=== PATIENT | male | born 1975 | race Caucasian/White ===

== ENCOUNTER 2016-12-10 16:24 | Inpatient (IN) | payer OTHER ==
[~2016-12-10] VITALS: Ht 172.7 cm; Wt 90.0 kg
[2016-12-10 16:26] VITALS: BP 144/100; PULSE 70; RESP 23; TEMP 98.6; O2SAT 99
[2016-12-10] MEDS ORDERED: NITROGLYCERIN 0.4 MG SL 25 TABS/BTL SL STA (16:39)
[2016-12-10] MEDS ORDERED: SODIUM CHLOR 0.9% 1000 ML INJ 1,000 ML IV ONE (16:39)
[2016-12-10] MEDS ORDERED: ASPIRIN 81 MG CHEW TAB PO STA (16:39)
[2016-12-10 16:41] VITALS: BP 146/95; PULSE 64; RESP 16; TEMP 98.6
[2016-12-10] MEDS ORDERED: NITROGLYCERIN-DEXTROSE INJ 250 ML IV SCH (16:45)
[2016-12-10] MEDS ORDERED: HEPARIN-NS/PF INJ 500 ML ONE (16:49)
--- NOTE | 2016-12-10 16:53 | PD ---
HPI Chief Complaint: Chest Pain Time Seen by Provider: 16:39 Travel History International Travel<30 days: No Contact w/Intl Traveler<30days: No Traveled to known affect area: No History of Present Illness HPI 42-year-old gentleman who presents today with 45 minutes of chest pain with radiation to his right jaw. Patient reports substernal pressure 10 out of 10 with radiation to right jaw. Patient also reports associated nausea and diaphoresis. Patient has no risk factors other than possible grandfather who had heart disease. [facility] Social History Alcohol Use: No Tobacco Use: Yes Substance Use: No Allergies-Medications (Allergen,Severity, Reaction): Coded Allergies: Amoxicillin (Verified Allergy, Unknown, 12/10/16) Review of Systems General / Constitutional: No: Fever HENT: No: Headaches, Lightheadedness Cardiovascular: Positive: Chest Pain or Discomfort, No: Palpitations, Irregular Rhythm Respiratory: Positive: Shortness of Breath, No: Cough Gastrointestinal: Positive: Nausea, No: Vomiting, Abdominal Pain Musculoskeletal: Positive: Pain, No: Myalgias, Weakness (pain rating to the right jaw) Neurologic: No: Weakness, Dizziness, Ataxia, Headache Physical Exam Narrative GENERAL: Well developed well-nourished male in no acute respiration distress SKIN: Focused skin assessment warm/dry. HEAD: Atraumatic. Normocephalic. EYES: No scleral icterus. No injection or drainage. ENT: Mucous membranes pink and moist. NECK: Trachea midline. No JVD. Supple CARDIOVASCULAR: Regular rate and rhythm. No murmur appreciated. RESPIRATORY: No accessory muscle use. Clear to auscultation. Breath sounds equal bilaterally. GASTROINTESTINAL: Abdomen soft, non-tender, nondistended. Hepatic and splenic margins not palpable. MUSCULOSKELETAL: No obvious deformities. No clubbing. No cyanosis. No edema. NEUROLOGICAL: Awake and alert. No obvious cranial nerve deficits. Motor grossly within normal limits. Normal speech. PSYCHIATRIC: Appropriate mood and affect; insight and judgment normal. Data Data Last Documented VS Vital Signs Date Time Temp Pulse Resp B/P Pulse Ox O2 Delivery O2 Flow Rate FiO2 12/10/16 16:45 100 Nasal Cannula 2 12/10/16 16:41 98.6 64 16 146/95 Orders Electrocardiogram (12/10/16 ) Troponin I (12/10/16 16:39) Ckmb (Isoenzyme) Profile (12/10/16 16:39) Complete Blood Count With Diff (12/10/16 16:39) I-Stat Profile (12/10/16 16:39) I-Stat Creatinine (12/10/16 16:39) Calcium (12/10/16 16:39) Magnesium (Mg) (12/10/16 16:39) Prothrombin Time / Inr (Pt) (12/10/16 16:39) Act Partial Throm Time (Ptt) (12/10/16 16:39) B-Type Natriuretic Peptide (12/10/16 16:39) Chest, Single Ap (12/10/16 16:39) Electrocardiogram (12/10/16 16:39) Oxygen Administration (12/10/16 16:39) Iv Access Insert/Monitor (12/10/16 16:39) Oximetry (12/10/16 16:39) Sodium Chlor 0.9% 1000 Ml Inj (Ns 1000 M (12/10/16 16:39) Sodium Chloride 0.9% Flush (Ns Flush) (12/10/16 16:45) Aspirin Chew (Aspirin Chew) (12/10/16 16:39) Nitroglycerin Sl (Nitrostat Sl) (12/10/16 16:39) Nitroglycerin-Dextrose Inj (Nitroglyceri (12/10/16 16:45) MDM Medical Decision Making Medical Screen Exam Complete: Yes Emergency Medical Condition: Yes Differential Diagnosis Unstable angina versus ST elevation WI versus pleurisy. Narrative Course 41-year-old male presents with chest pain chest pressure nausea and diaphoresis. The patient has ST elevation in the leads V1 and V2 V3 with ST depression and 2,3 and aVF. The patient has no cardiac risk factors. STEMI alert was called as soon as patient arrived. Case discussed with Dr. Dey, who is in the [facility] and awaiting patient to be transferred up. Patient will be transferred up emergently to the [facility]. Diagnosis Primary Impression: Acute ST elevation myocardial infarction Admitting Information Admitting Physician Requests: Admit Sly Briceño MD December 10, 2016 16:53
[2016-12-10] MEDS ORDERED: MIDAZOLAM HCL 5 MG/5 ML VIAL ONE (16:57)
[2016-12-10] MEDS ORDERED: HEPARIN SODIUM - IV 10,000 UNITS/10 ML VIAL ONE (17:01)
[2016-12-10 17:06] LABS: I-STAT POTASSIUM 3.8 MMOL/L (3.5-4.9); I-STAT SODIUM 142 MMOL/L (138-146)
[2016-12-10] MEDS ORDERED: BIVALIRUDIN 250 MG VIAL ONE (17:09)
[2016-12-10] MEDS ORDERED: STERILE WATER FOR INJECTION 10 ML VIAL ONE (17:09)
[2016-12-10 17:13] LABS: AUTOMATED NEUTROPHIL # 6.9 TH/MM3 (1.8-7.7); BASOPHIL % 0.2 % (0.0-2.0); EOSINOPHIL # 0.3 TH/MM3 (0-0.4); EOSINOPHIL % 2.2 % (0.0-4.0); HEMATOCRIT 50.2 % (39.0-51.0); LYMPH % 42.8 % (9.0-44.0); LYMPHOCYTE # 6.4 TH/MM3 (1.0-4.8); MEAN CELL VOLUME 88.6 FL (80.0-100.0); MEAN CORPUSCULAR HEMOGLOBIN 29.6 PG (27.0-34.0); MEAN CORPUSCULAR HGB CONC 33.5 % (32.0-36.0); MONO % 8.5 % (0.0-8.0); NEUT % 46.3 % (16.0-70.0); PLATELET COUNT 288 TH/MM3 (150-450); RED BLOOD COUNT 5.67 MIL/MM3 (4.50-5.90); RED CELL DISTRIBUTION WIDTH 12.6 % (11.6-17.2); WHITE BLOOD COUNT 14.9 TH/MM3 (4.0-11.0)
[2016-12-10 17:24] LABS: MAGNESIUM 2.3 MG/DL (1.5-2.5)
[2016-12-10 17:27] LABS: CREATINE KINASE 110 U/L (39-308)
[2016-12-10 17:38] LABS: HEMO FLAGS AUTO DIFF
[2016-12-10 17:39] LABS: CKMB 2.6 NG/ML (0.5-3.6)
[2016-12-10 17:49] LABS: APTT (PATIENT) 24.5 SEC (24.3-30.1); PROTHROMBIN TIME - PATIENT 10.8 SEC (9.8-11.6)
[2016-12-10] MEDS ORDERED: ASPIRIN 325 MG TAB ONE (17:49)
[2016-12-10] MEDS ORDERED: TICAGRELOR 90 MG TAB PO ONE (17:49)
--- NOTE | 2016-12-10 18:11 | CATHPROC ---
[employer] HIS Report Study Information Study Number Admission Scheduled Start Study Start [id number] 12/10/2016 12/10/2016 Dec 10 2016 4:56PM Referring Institution Admit Source Facility Department 1 Emergency department [facility] - Packing Machine Can Feeder Physician and Clinical Staff Initial Mu Wilkes Jennifer,RN Magnaflux OperatorMerry Han,MABEL Other Krys Knowles,MABEL/BA Other Moody Bhatia RN Other Belle Walsh RN Recorder Nakul Posey,RT(R) Barber Henriquez,RT(R) TECH2 Procedures Performed Procedure Location (Site) Vessel Name Coronary Angiograms LCA Left Coronary Coronary Angiograms RCA Right Coronary Drug Eluting Inflatio LAD Prox Left Coronary PTCA LAD Prox Left Coronary PTCA ADD ON'S Wire insertion Fem Art (right) Femoral Art Equipment Time User Experience Analyst Description Size Mfg Part Number Used/Scraped COPILOT VALVE, BLEEDBACK [id number] 17:10 [employer] Used CONTROL *[id number] PERCLOSE, PRO GLIDE CLOSER 17:46 [employer] [place] [place] 6 [id number] Used DEVICE TRANSDUCER, TRUWAVE 17:06 [employer] * [id number] Used W/[employer] WIRE, CHOICE PT EX. SUPPORT [id number] 17:20 [employer] 180CM Used 182CM *[id number]- INTRODUCER SET, 17:06 [employer] FR 5 SC-NT-U-SST Used MICROPUNCTURE, STIFFENED *[id number] *[id number] 17:06 [employer] IND[employer]RIES PACK, CCL CUSTOM * Used *[id number] 17:14 [employer] BALLOON, 2.5 X 12MM EUPHORA 12MM Used *[id number] STENT, 3.5 22 RESOLUTE [id number] 17:39 [employer] 3.5 22 Used INTEGRITY RX *[id number] 17:09 [employer]/AVE EBU 3.5 Z2 GUIDE CATHETER FR 6 Used *[id number] 17:14 [employer] 30 FRITZ INDEFLATOR Used *[id number] 17:08 [employer] SHEATH, FR6.5 PRELUDE 11CM FR 6.5 038ACT Used *[id number] 17:06 [employer] WIRE, 3MMJ .035 180CM 180CM Used *[id number] 17:06 [employer] MANIFOLD, 4 PORT * Used *[id number] 17:06 [employer] OMNIPAQUE, 350 MG, 150ML 150ML [id number] Used [id number] 17:06 [employer] BLANKET,WARM AIR CCL * Used *[id number] WIRE, RUNTHROUGH NS FLOPPY 1011 17:10 [employer] 180CM Used .014 180CM *[id number] WIRE, RUNTHROUGH NS FLOPPY 1011 17:30 [employer] 180CM Used .014 180CM *[id number] Equipment Model, Serial, Lot Number and Expiration Data Description Model Number Serial Number Lot Number Expiration Date PERCLOSE, PRO GLIDE CLOSER [id number] 05-24-2018 DEVICE STENT, 3.5 22 RESOLUTE [id number] 10-10-2018 INTEGRITY RX WIRE, CHOICE PT EX. SUPPORT [id number] 06-23-2018 182CM History: Allergies Allergy Reaction Amoxicillin History: Risk Factors Family History of Hypertension Dyslipidemia Previous SC Previous Heart Failure Premature CAD Yes No No No No Prior Valve Prior PCI Prior CABG Surgery No No No Cerebrovascular Peripheral Artery Chronic Lung On Dialysis Diabetes Disease Disease Disease No No No No No History: Stress Tests Stress or Imaging Studies Performed No History: Other Current Smoker Method Packs a Day Years Used Pack Years Yes Cigarettes 1 20 20 Labs Hgb (g/dl) Hct (%) RBC (MIL/MM3) WBC (l/cumm) Platelets (thousands) 12.00-18.00 37.00-55.00 4.80-6.20 4.80-10.80 140.00-450.00 16.8 50.2 5.6 14.9 288 Glucose (mg/dl) BUN (mg/dl) Creatinine (mg/dl) BUN:Creatinine (1:x) 60.00-110.00 8.00-20.00 0.10-9.00 10.00-20.00 107 14 0.9 15.6 Na (meq/l) K (meq/l) 138.00-146.00 3.80-5.10 142 3.8 INR (PTT:PT) 0.50-2.00 1 Troponin I (ng/ml) CPK (u/l) CPK-MB (ng/ML) 0.40-2.30 37.00-289.00 0.00-7.00 0.02 110 2.6 Medication Medication Total Dose (Bolus/Oral) Medication Total Dosage/Unit 1% XYLOCAINE 20 mL ANGIOMAX BOLUS 14 mL ASPIRIN 325 mg BRILINTA 180 mg FENTANYL 100 mcg VERSED 2 mg Medications (Bolus/Oral) Medication Time Given Dosage/Unit Administered By Reason VERSED 12/10/2016 5:04:14 PM 2 mg Belle Walsh 2 mg VERSED given in lab by Belle Walsh, MABEL in Left Antecubital via Peripheral IV. Ordered by Mu Melendez. FENTANYL 12/10/2016 5:05:30 PM 50 mcg Belle Walsh 50 mcg FENTANYL given in lab by Belle Walsh RN in Left Antecubital via Peripheral IV. Ordered by Mu Pagan. 1% XYLOCAINE 12/10/2016 5:05:42 PM 20 mL Mu Pagan 20 mL 1% XYLOCAINE given in lab by Mu Pagan in Right Groin via Subcutaneous. Ordered by Mu Melendez. ANGIOMAX BOLUS 12/10/2016 5:12:29 PM 14 mL Belle Walsh 14 mL ANGIOMAX BOLUS given in lab by Belle Walsh, MABEL in Left Antecubital via Peripheral IV. Ordere d by Mu Pagan. FENTANYL 12/10/2016 5:50:08 PM 50 mcg Adamy, Ela 50 mcg FENTANYL given in lab by Ela Rodriguez, MABEL via Peripheral IV. Ordered by Mu Pagan. BRILINTA 12/10/2016 5:55:04 PM 180 mg Adamy, Ela 180 mg BRILINTA given in lab by Ela Rodriguez, RN via Oral. Ordered by Mu Pagan. ASPIRIN 12/10/2016 5:56:27 PM 325 mg Adamy, Ela 325 mg ASPIRIN given in lab by Ela Rodriguez, RN via Oral. Ordered by Mu Paagn. Medication (Drip) Medication Time Given Dosage/Unit Concentration/Unit Diluent (ml) Solutio n ANGIOMAX DRIP 12/10/2016 5:15:27 PM 1.75 mg/kg/hr 250 mg 50 NaCl .9 1.75 mg/kg/hr ANGIOMAX DRIP given in lab by Belle Walsh, MABEL in Left Antecubital via Peripheral IV. Pump/Drip Flow = 31.5 ml/hr using NaCl .9 with a concentration of 250 mg in 50 ml. Ordered by Mu Pagan. IV Solutions 12/10/2016 4:56:48 PM 0 mL (IV) 500 NaCl .9 Patient arrived on IV Solutions in Right Antecubital via Peripheral IV. Pump/Drip Flow = 20 ml/hr usi ng NaCl .9. Initial Case Assessment Cardiovascular HR Rhythm NIBP Chest Pain 63 SR 150/100 8 Edema Present Skin color Skin None Normal Warm Dry Circulatory - Right Pulses Dorsalis Pedis Femoral 2 2 Scale (0,1,2,3,4,d) Circulatory - Left Pulses Dorsalis Pedis Femoral 2 2 Scale (0,1,2,3,4,d) Neurological State Oriented to time-place- Alert Moves all extremities person Respiration - General Respiration Rate SpO2 (%) O2 (lpm) (B/min) 18 100 0 Final Case Assessment Cardiovascular HR Rhythm NIBP Chest Pain 76 sr 118/92 0 Edema Present Skin color Skin None Normal Warm Dry Circulatory - Right Pulses Dorsalis Pedis Femoral 2 2 Scale (0,1,2,3,4,d) Circulatory - Left Pulses Dorsalis Pedis Femoral 2 2 Scale (0,1,2,3,4,d) Neurological State Oriented to time-place- Alert Moves all extremities person Respiration - General Respiration Rate SpO2 (%) O2 (lpm) (B/min) 18 100 2 Chronological Log Time Study Chronological Log 16:53:01 Patient arrived via Bed. 16:53:04 Patient Name, D.O.B, / Armband Verified By R.N. 16:56:26 Verbal Stimulation=2 Physical Stimulation=2 Airway=2 Respiration=2 TOTAL=8. (0=absent, 1=li mited, 2=present) 16:56:29 Presedation assessment performed by Packing Machine Can Feeder RN. 16:56:37 Skin Breakdown- 16:56:41 Patient Warmer Placed on the Table. 16:56:42 Disposable Defibrillator Pads Placed On Patient. 16:56:47 Aye Prominences Protected 16:56:47 A # 18 IV was noted in the Antecubital (left). Grade = 0 16:56:48 Patient arrived on IV Solutions in Right Antecubital via Peripheral IV. Pump/Drip Flow = 20 ml/hr using NaCl .9. 16:56:48 History and physical on the chart or being dictated. Assessment: Initial Case, HR=63 BPM, Rhythm=SR, QYIG=962/100 mmhg, Chest Pain=8, Edema=None, Color=Normal, Skin = Warm, Dry Right Pulses: Dez Ped=2, Femoral=2 16:56:49 Left Pulses: Dez Ped=2, Femoral=2 Neurological: State=Alert, Ox3, SUÁREZ Respiration: Resp=18 B/min, DqL0=507 %, O2=0 lpm Vitals capture started with the following parameters, Patient=Adult, Interval=5 min, Initial Pr xgcknc=158 mmHg, 16:58:20 Deflation Rate=5 mmHg 16:58:59 HR=67 bpm, GZDO=763/100 mmhg, YhT8=363.0 %, Resp=13 B/min, Pain=8, Katiana=10, Blackwell=2 17:03:13 Pressure channel 1 zeroed. 17:04:00 HR=69 bpm, MMTR=577/93 mmhg, SpO2=99.0 %, Resp=13 B/min, Blackwell=2 17:04:14 2 mg VERSED given in lab by Belle Walsh, RN in Left Antecubital via Peripheral IV. Order ed by Mu Pagan. Time Out. Correct patient, correct procedure,correct physician, ,power injector not loaded with contrast with surgical 17:04:29 team present. Time Out Concurred by MD, individual staff and LOADMASTER in procedure. Not loaded at t his time. 17:04:58 Presedation re-assessment performed by Packing Machine Can Feeder RN. 17:05:00 Case Start 17:05:02 Verbal Stimulation=2 Physical Stimulation=2 Airway=2 Respiration=2 TOTAL=8. (0=absent, 1=li mited, 2=present) 50 mcg FENTANYL given in lab by Belle Walsh, RN in Left Antecubital via Peripheral IV. Order ed by Latasha 17:05:30 Mu. 20 mL 1% XYLOCAINE given in lab by Mu Pagan in Right Groin via Subcutaneous. Ordered b y Latasha, 17:05:42 Mu. 17:06:05 Access site was Right Femoral Artery. 17:06:28 A SHEATH, FR6.5 PRELUDE 11CM FR 6.5 was advanced into the Fem Art (right) using the Modifkeith d Seldinger technique. 17:08:39 An injection in the Fem Art (right) was made through the SHEATH, FR6.5 PRELUDE 11CM FR 6.5. A JL 5.0 INFINITI CATHETER FR 5 was advanced over a wire. OMNIPAQUE, 350 MG, 150ML 150ML was us ed for 17:08:59 injections. 17:09:00 HR=87 bpm, APHK=327/111 mmhg, SpO2=95.0 %, Resp=16 B/min, Blackwell=2 17:09:15 The LCA was injected and visualized at various angles. OMNIPAQUE, 350 MG, 150ML 150ML used . 17:09:28 Catheter was removed A JR 4.0 INFINITI CATHETER FR 5 was advanced over a wire. OMNIPAQUE, 350 MG, 150ML 150ML was us ed for 17:09:30 injections. 17:10:10 Reference ECG taken 17:10:30 The RCA was injected and visualized at various angles. OMNIPAQUE, 350 MG, 150ML 150ML used . 14 mL ANGIOMAX BOLUS given in lab by Belle Walsh, MABEL in Left Antecubital via Peripheral IV. Ordered by Juliet 17:12:29 Mu Ramires. After removing the current catheter a EBU 3.5 Z2 GUIDE CATHETER FR 6 was advanced over a WIRE, 3MMJ .035 17:13:11 180CM 180CM. 17:14:03 HR=80 bpm, SZUM=225/98 mmhg, SpO2=95.0 %, Resp=18 B/min, Blackwell=2 17:14:14 OMNIPAQUE, 350 MG, 150ML 150ML and 30 FRITZ INDEFLATOR added. 17:14:46 A WIRE, RUNTHROUGH NS FLOPPY .014 180CM 180CM was inserted via Fem Art (right). 1.75 mg/kg/hr ANGIOMAX DRIP given in lab by Belle Walsh, MABEL in Left Antecubital via Peripher al IV. Pump/Drip 17:15:27 Flow = 31.5 ml/hr using NaCl .9 with a concentration of 250 mg in 50 ml. Ordered by Mu Pagan. 17:16:26 Wire removed for reshaping. 17:18:53 A WIRE, RUNTHROUGH NS FLOPPY .014 180CM 180CM was inserted via Fem Art (right). 17:19:02 HR=77 bpm, CEXO=330/108 mmhg, SpO2=99.0 %, Resp=5 B/min, Blackwell=2 17:19:55 Wire removed 17:19:58 A WIRE, CHOICE PT EX. SUPPORT 182CM 180CM was inserted via Fem Art (right). 17:24:01 HR=72 bpm, PQXM=472/111 mmhg, BqH5=100.0 %, Resp=0 B/min, Blackwell=2 17:28:38 Wire removed 17:29:06 HR=70 bpm, EOED=879/103 mmhg, SpO2=97.0 %, Resp=5 B/min, Blackwell=2 17:29:26 Catheter was removed 17:29:29 A catheter was advanced over a wire. OMNIPAQUE, 350 MG, 150ML 150ML was used for injections . XB LAD 4.0 17:32:00 A WIRE, RUNTHROUGH NS FLOPPY .014 180CM 180CM was inserted via Fem Art (right). 17:34:03 HR=74 bpm, TQJO=460/102 mmhg, SpO2=99.0 %, Resp=0 B/min, Blackwell=2 17:34:58 Interventional wire has crossed the lesion A BALLOON, 2.5 X 12MM EUPHORA 12MM was inserted over WIRE, RUNTHROUGH NS FLOPPY .014 180CM 180C M via 17:35:49 the LAD Prox. A BALLOON, 2.5 X 12MM EUPHORA 12MM over a WIRE, RUNTHROUGH NS FLOPPY .014 180CM 180CM in the LA D 17:36:08 Prox was inflated using a 30 FRITZ INDEFLATOR at 12 fritz for 10 sec. 17:38:21 Balloon Removed. 17:39:02 HR=54 bpm, XRAF=692/93 mmhg, ZdB4=352.0 %, Resp=15 B/min A STENT, 3.5 22 RESOLUTE INTEGRITY RX 3.5 22 was advanced through a catheter over a WIRE, RUBA OLSEN NS 17:39:55 FLOPPY .014 180CM 180CM. XB 4.0 A STENT, 3.5 22 RESOLUTE INTEGRITY RX 3.5 22 was deployed using a 30 FRITZ INDEFLATOR at 10 atmos pheres for 17:40:13 15 seconds in the LAD Prox. 17:42:40 Vitals capture stopped. Vitals capture started with the following parameters, Patient=Adult, Interval=5 min, Initial Pr msmnah=438 mmHg, 17:42:41 Deflation Rate=5 mmHg 17:42:46 Delivery device removed 17:43:20 HR=81 bpm, UPUC=738/92 mmhg, RpH5=300.0 %, Resp=5 B/min, Blackwell=2 17:46:08 PERCLOSE, PRO GLIDE CLOSER DEVICE FR 6 placement in the Fem Art (right) Assessment: Final Case, HR=76 BPM, Rhythm=sr, KMFM=371/92 mmhg, Chest Pain=0, Edema=None, Color =Normal, Skin = Warm, Dry Right Pulses: Dez Ped=2, Femoral=2 17:46:42 Left Pulses: Dez Ped=2, Femoral=2 Neurological: State=Alert, Ox3, SUÁREZ Respiration: Resp=18 B/min, AlP8=664 %, O2=2 lpm 17:47:36 Catheter(s) removed without difficulty 17:47:39 Case End 17:47:41 No case complications noted. 17:47:44 Cine recording checked. 17:47:47 Implantable Device card placed in patient's chart. 17:47:49 Contrast Scanned 17:48:15 HR=77 bpm, GKKJ=989/77 mmhg, NgE4=344.0 %, Resp=4 B/min, Blackwell=2 17:50:08 50 mcg FENTANYL given in lab by Ela Rodriguez, RN via Peripheral IV. Ordered by Mu Choi. 17:51:33 Sterile dressing applied to site 17:53:16 HR=64 bpm, PUWX=499/86 mmhg, HlL3=416.0 %, Resp=14 B/min, Blackwell=2 17:55:04 180 mg BRILINTA given in lab by Ela Rodriguez, RN via Oral. Ordered by Mu Pagan. 17:56:27 325 mg ASPIRIN given in lab by Ela Rodriguez, MABEL via Oral. Ordered by Mu Pagan. 18:00:07 Patient moved to [facility] End Study - Contrast Media Used In Study Contrast Total Opened (mL) Total Used (mL) Total Wasted (mL) Omnipaque 275 275 0 End Study - Maximum Contrast Load Max Contrast Load (mL) 500.0 End Study - Radiation Exposure Fluoro Time (minutes) 18.8 End Study - Patient Disposition Complications Transferred To Telemetry Bed
[2016-12-10] MEDS ORDERED: ACETAMINOPHEN 325 MG TAB PO PRN (18:15)
[2016-12-10] MEDS ORDERED: ATROPINE SULFATE 1 MG/ML VIAL IV PRN (18:15)
[2016-12-10 18:18] LABS: BANDS 2 % (0-6); BASOPHILS 3 % (0-2); EOSINOPHILS 3 % (0-4); NEUTROPHIL # MANUAL DIFF 7.5 TH/MM3 (1.8-7.7); PLATELET ESTIMATE SMEAR NORMAL (NORMAL); POLYS (SEG NEUTROPHILS) 48 % (16-70); SCAN/DIFF FINAL DIFF MANUAL; WBC DIFF SAMPLE 100
[2016-12-10 18:19] LABS: PLATELET MORPHOLOGY NORMAL (NORMAL)
--- NOTE | 2016-12-10 18:50 | MA ---
cc: SHEILA MELISSA DATE: 12/10/2016. PROCEDURES PERFORMED: 1. Left heart catheterization. 2. Selective right and left coronary angiography. 3. Right common femoral artery angiography. 4. Successful percutaneous coronary intervention drug-eluting stent to the proximal left anterior descending. INDICATIONS FOR THE PROCEDURE: S-T elevation myocardial infarction. DESCRIPTION OF THE PROCEDURE IN DETAIL: Consent signed. The patient was taken emergently to the cardiac roofing laborer. The right groin was prepped and draped in sterile fashion using 1% lidocaine for local anesthesia and a micropuncture kit. A 6-Slovenian sheath was inserted into the right common femoral artery. The right common femoral artery angiography was performed to confirm position of the sheath. Then selective right and left coronary angiography was performed with a JR-4 and a JL-4 diagnostic catheters. Angiography was taken in multiple views to identify the culprit of the STEMI in the proximal LAD territory. IV Angiomax was started for anticoagulation. An EBU 3.5 guide was used to engage the left main followed by wiring the left anterior descending with a run-through wire. the lesion was predilated with a 2.5 x 12 balloon followed by insertion and deployment of a 3.5 x 22 drug- eluting stent. The patient tolerated the procedure without complications. Estimated blood loss was less than 30 mL. Total contrast used was 275 mL. The right groin access site was closed with the Perclose device. The patient was loaded with Brilinta after the procedure and given aspirin as well. ANGIOGRAPHIC RESULTS: 1. The left main is patent with nonobstructive coronary artery disease. 2. The left anterior descending is 100% occluded. The left anterior descending is giving off a high diagonal which is patent and also there is a ramus intermedius vessel. These vessels are patent with JOSE III flow and coronary artery disease. 3. Left circumflex has minimal luminal irregularities and calcification in the midsection. It is giving off two obtuse marginal branches which are patent with JOSE III flow. 4. Right coronary artery is a dominant vessel giving off the posterior descending artery. It does have a mid 70% long lesion before the bifurcation to the RV branch. The vessel has JOSE III flow. CONCLUSIONS: 1. Successful PCI/MONET to proximal LAD in the setting of a S-T elevation myocardial infarction 2. 70% lesion in the mid right coronary artery. However this vessel was not fixed given that it was not the culprit of the STEMI and the patient was not in any hemodynamic compromise. RECOMMENDATIONS: 1. Continue dual antiplatelet agent with aspirin and Brilinta. 2. Start beta-blockers. 3. Start TRINH inhibitors as tolerated by blood pressure and heart rate. 4. The patient should have a 2-D echo before discharge to assess left ventricular systolic function. 5. He will have post Cath care in the [facility]. 6. After rest, will encourage out of bed. MD BRAEDEN Lam/DENNY /6:01 PM /6:38 PM [id number]
[2016-12-10 19:00] VITALS: BP 131/83; PULSE 85; PULSE 94; TEMP 98.5; O2SAT 96
[2016-12-10] MEDS ORDERED: SODIUM CHLOR 0.9% 1000 ML INJ 1,000 ML IV SCH (20:00)
--- NOTE | 2016-12-10 20:02 | MB ---
cc: SHEILA MELISSA DATE OF CONSULTATION: 12/10/2016. REASON FOR CONSULTATION: S-T segment elevation myocardial infarction. HISTORY OF PRESENT ILLNESS: 41-year-old male smoker who presented to the emergency department from work with an acute onset of substernal chest discomfort associated with diaphoresis and shortness of breath. EKG in the emergency department revealed anterior S-T segment elevation with reciprocal changes in the inferior leads, interventional cardiology consulted for an emergent percutaneous coronary intervention. Currently the patient complains of chest pain. He has been given aspirin, basic blood work pending. He denies fevers, chills, nausea or vomiting, diarrhea , bleeding issues, weight loss, syncope, PND, leg edema. PAST MEDICAL HISTORY: None. PAST SURGICAL HISTORY: None. HOME MEDICATIONS: None. ALLERGIES: NO KNOWN DRUG ALLERGIES. FAMILY HISTORY: Noncontributory. PHYSICAL EXAMINATION: VITAL SIGNS: Temperature 97, respiratory rate 20, blood pressure 145/80, 02 sat 100% on room air. GENERAL: He is awake, alert and oriented and complaining of chest pain. NECK: No jugular venous distention. No carotid bruits. HEART: Regular rate and rhythm. No murmurs, rubs or gallops. LUNGS: Clear to auscultation bilaterally. EXTREMITIES: No cyanosis. No edema. Pulses throughout. EKGS: S-T segment elevation in the anterior leads. He also has depressions in the inferior leads. Preliminary LABORATORY DATA: Hemoglobin 16, hematocrit 50. Sodium 140, potassium 3.8, BUN 14, creatinine 0.9. First set of troponins is 0.02. Platelet count 288,000. ASSESSMENT AND PLAN: 41-year-old male smoker who presented with S-T segment elevation myocardial infarction. The patient will be taken emergently to the cardiac labor arbitrator for emergent percutaneous coronary intervention. The risks, benefits, and alternatives of left heart catheterization / percutaneous coronary intervention including but not limited to neurovascular trauma, infection, bleeding, emergent bypass surgery, stroke, and have been explained to the patient. The patient understands the risks and he is willing to proceed. RECOMMENDATIONS: 1. Emergent PCI Further therapy to be determined. MD BRAEDEN Lam/DENNY /6:09 PM /6:48 PM DEBORAH
[2016-12-10] MEDS: METOPROLOL TARTRATE 25 MG TAB PO SCH (21:00)
[2016-12-10] MEDS ORDERED: PILL SPLITTER OTHER PRN (21:00)
[2016-12-10] MEDS ORDERED: ATORVASTATIN 10 MG TAB PO SCH (21:00)
[2016-12-10 23:00] VITALS: PULSE 89
[2016-12-11] VITALS (26 sets, daily range): BP systolic 113–133; BP diastolic 68–81; PULSE 66–94; RESP 16–20; TEMP 97.8–98.7; O2SAT 92–97
[2016-12-11 04:55] LABS: AUTOMATED NEUTROPHIL # 10.3 TH/MM3 (1.8-7.7); BASOPHIL # 0.1 TH/MM3 (0-0.2); BASOPHIL % 0.8 % (0.0-2.0); EOSINOPHIL # 0.2 TH/MM3 (0-0.4); EOSINOPHIL % 1.2 % (0.0-4.0); HEMATOCRIT 43.3 % (39.0-51.0); HEMO FLAGS DIFF FINAL; LYMPH % 23.1 % (9.0-44.0); LYMPHOCYTE # 3.6 TH/MM3 (1.0-4.8); MEAN CORPUSCULAR HEMOGLOBIN 30.3 PG (27.0-34.0); MEAN CORPUSCULAR HGB CONC 34.5 % (32.0-36.0); MONO % 8.4 % (0.0-8.0); NEUT % 66.5 % (16.0-70.0); PLATELET COUNT 224 TH/MM3 (150-450); RED BLOOD COUNT 4.92 MIL/MM3 (4.50-5.90); RED CELL DISTRIBUTION WIDTH 12.4 % (11.6-17.2); WHITE BLOOD COUNT 15.5 TH/MM3 (4.0-11.0)
[2016-12-11 05:21] LABS: BICARBONATE 25.3 MEQ/L (21.0-32.0); HDL CHOLESTEROL 29.3 MG/DL (40.0-60.0)
--- NOTE | 2016-12-11 08:07 | PD.CONS ---
[facility] By Dr. Dey Reason for Consult Medical management post STEMI Primary Care Physician Unknown Diagnoses: (1) Acute ST elevation myocardial infarction (2) Dyslipidemia (3) Leukocytosis (4) Tobacco abuse History of Present Illness The patient is a 41-year-old male who presented to the emergency department with acute onset of right-sided chest pain that radiated to his jaw. This started 30-45 minutes prior to arrival at the ER. He states that he has intermittent neck and upper chest pain related to prior cervical fusion, but this pain was significantly different and did not resolve. He took Tums without relief. He reported associated diaphoresis. He had nausea, but no vomiting. Denies dyspnea. Chest pain has resolved. Only complaint at this time is right groin pain. Review of Systems Constitutional: COMPLAINS OF: Diaphoretic episodes, DENIES: Fever, Chills, Night Sweats Eyes: DENIES: Blurred vision, Vision loss Ears, nose, mouth, throat: DENIES: Hearing loss Respiratory: DENIES: Cough, Wheezing, Sputum production, Shortness of breath Cardiovascular: COMPLAINS OF: Chest pain, DENIES: Palpitations, Dyspnea on Exertion, Lower Extremity Edema Gastrointestinal: COMPLAINS OF: Nausea, DENIES: Abdominal pain, Constipation, Diarrhea, Vomiting Genitourinary: DENIES: Urinary frequency, Urinary incontinence, Urgency, Hematuria, Dysuria, Nocturia Musculoskeletal: DENIES: Joint pain, Muscle aches Integumentary: DENIES: Pruritus, Rash Hematologic/lymphatic: DENIES: Bruising Neurologic: DENIES: Headache Past Family Social History Allergies: Coded Allergies: Amoxicillin (Verified Allergy, Unknown, 12/10/16) Past Medical History Denies Past Surgical History Left hand surgery as a child Cervical spine fusion Reported Medications None Family History Grandfather had myocardial infarction. Mother has history of atrial fibrillation. Social History Smokes one pack per day. Drinks 1-2 alcoholic beverages daily. Denies illicit drug use. Physical Exam Vital Signs Vital Signs Date Time Temp Pulse Resp B/P Pulse Ox O2 Delivery O2 Flow Rate FiO2 12/11/16 06:00 84 12/11/16 05:00 66 12/11/16 04:14 98.7 83 133/70 96 12/11/16 04:00 74 12/11/16 03:00 81 12/11/16 02:00 70 12/11/16 01:00 76 12/11/16 00:39 98.3 73 119/68 92 12/11/16 00:00 68 12/10/16 23:00 89 12/10/16 19:00 98.5 94 131/83 96 12/10/16 19:00 85 12/10/16 19:00 98.5 94 131/83 96 12/10/16 16:47 100 Room Air 2 12/10/16 16:45 100 Nasal Cannula 2 12/10/16 16:41 98.6 64 16 146/95 12/10/16 16:26 98.6 70 23 144/100 99 Physical Exam GENERAL: Well-nourished, well-developed male in no acute distress. HEENT: Normocephalic, atraumatic. Pupils equal, round and reactive. Extraocular movements intact. No scleral icterus. No injection or drainage. Oropharynx is clear. Mucous membranes are moist. CARDIOVASCULAR: Regular rate and rhythm without murmurs, gallops, or rubs. RESPIRATORY: Clear to auscultation. No wheezes, rales, or rhonchi. Breathing is non-labored. GASTROINTESTINAL: Abdomen soft, non-tender, nondistended. EXTREMITIES: No lower extremity edema. No calf tenderness. PSYCH: Alert and oriented x 3. Laboratory Laboratory Tests Test 12/10/16 12/11/16 16:47 04:29 White Blood Count 14.9 15.5 Red Blood Count 5.67 4.92 Hemoglobin 16.8 14.9 Bedside Hemoglobin 16.7 Hematocrit 50.2 43.3 Bedside Hematocrit 49.0 Mean Corpuscular Volume 88.6 88.0 Mean Corpuscular Hemoglobin 29.6 30.3 Mean Corpuscular Hemoglobin 33.5 34.5 Concent Red Cell Distribution Width 12.6 12.4 Platelet Count 288 224 Mean Platelet Volume 9.9 10.2 Neutrophils (%) (Auto) 46.3 66.5 Lymphocytes (%) (Auto) 42.8 23.1 Monocytes (%) (Auto) 8.5 8.4 Eosinophils (%) (Auto) 2.2 1.2 Basophils (%) (Auto) 0.2 0.8 Neutrophils # (Auto) 6.9 10.3 Lymphocytes # (Auto) 6.4 3.6 Monocytes # (Auto) 1.3 1.3 Eosinophils # (Auto) 0.3 0.2 Basophils # (Auto) 0.0 0.1 CBC Comment AUTO DIFF DIFF FINAL Differential Total Cells 100 Counted Neutrophils % (Manual) 48 Band Neutrophils % 2 Lymphocytes % 42 Monocytes % 2 Eosinophils % 3 Basophils % 3 Neutrophils # (Manual) 7.5 Differential Comment FINAL DIFF MANUAL Platelet Estimate NORMAL Platelet Morphology Comment NORMAL Prothrombin Time 10.8 Prothromb Time International 1.0 Ratio Activated Partial 24.5 Thromboplast Time Bedside Sodium 142 Bedside Potassium 3.8 Bedside Chloride 106 Bedside Blood Urea Nitrogen 14 Bedside Creatinine 0.9 Bedside Glucose 107 Calcium Level 9.4 8.5 Magnesium Level 2.3 Total Creatine Kinase 110 Creatine Kinase MB 2.6 Troponin I LESS THAN 0.02 B-Type Natriuretic Peptide LESS THAN 2 Sodium Level 141 Potassium Level 4.0 Chloride Level 106 Carbon Dioxide Level 25.3 Anion Gap 10 Blood Urea Nitrogen 14 Creatinine 0.86 Estimat Glomerular Filtration 98 Rate Random Glucose 96 Triglycerides Level 224 Cholesterol Level 174 LDL Cholesterol 100 HDL Cholesterol 29.3 Cholesterol/HDL Ratio 5.93 Result Diagram: 12/11/16 0429 12/11/16 0429 Assessment and Plan Assessment and Plan 1. STEMI: Management per cardiology. Status post cardiac catheterization with placement of stent to the LAD. Continue statin, TRINH inhibitor, beta ludy. Dual antiplatelet therapy with aspirin and Brilinta. 2. Dyslipidemia: LDL is above goal. HDL is low. Continue statin. 3. Tobacco abuse: Counseled to quit smoking. 4. DVT prophylaxis: Aspirin, Brilinta. Problem Qualifiers (1) Acute ST elevation myocardial infarction: Qualified Code: I21.02 - Acute ST elevation myocardial infarction (STEMI) involving left anterior descending (LAD) coronary artery Omid Rain MD December 11, 2016 08:07
[2016-12-11] MEDS: ASPIRIN 81 MG CHEW TAB PO SCH (08:21)
[2016-12-11] MEDS: TICAGRELOR 90 MG TAB PO SCH ×2 (08:21→20:39)
[2016-12-11] MEDS: METOPROLOL TARTRATE 25 MG TAB PO SCH ×2 (08:21→20:39)
[2016-12-11] MEDS: LISINOPRIL 5 MG TAB PO SCH (08:22)
[2016-12-11] MEDS: SODIUM CHLORIDE 0.9% FLUSH 10 ML FLUSH IVF PRN ×2 (08:22→20:40)
--- NOTE | 2016-12-11 09:25 | PD.CARD.PN ---
Subjective Subjective Remarks no complaints no overnight events ambulating without difficulty Objective Medications Current Medications Medications (Trade) Dose Ordered Sig/Rafaela Route Start Time Stop Time Status Last Admin Sodium Chloride 2 ml 2 ml UNSCH PRN IVF 12/10/16 16:45 12/11/16 08:22 (Nitroglycerin-Dextrose Inj) 250 ml @ 0 mls/hr TITRATE IV 12/10/16 16:45 (Tylenol) 325 mg Q4H PRN PO 12/10/16 18:15 12/11/16 06:14 (Aspirin Chew) 81 mg DAILY PO 12/11/16 09:00 12/11/16 08:21 (Brilinta) 90 mg BID PO 12/11/16 09:00 12/11/16 08:21 (Atropine Inj) 0.5 mg UNSCH PRN IV 12/10/16 18:15 (Lopressor) 12.5 mg BID PO 12/10/16 21:00 12/11/16 08:21 (Prinivil) 5 mg DAILY PO 12/11/16 09:00 12/11/16 08:22 (Lipitor) 10 mg HS PO 12/10/16 21:00 12/10/16 21:00 (Pill Splitter) 1 ea UNSCH PRN OTHER 12/10/16 21:00 Vital Signs / I&O Vital Signs Date Time Temp Pulse Resp B/P Pulse Ox O2 Delivery O2 Flow Rate FiO2 12/11/16 08:27 18 12/11/16 08:00 98.7 93 20 128/81 96 12/11/16 07:00 69 12/11/16 06:00 84 12/11/16 05:00 66 12/11/16 04:14 98.7 83 133/70 96 12/11/16 04:00 74 12/11/16 03:00 81 12/11/16 02:00 70 12/11/16 01:00 76 12/11/16 00:39 98.3 73 119/68 92 12/11/16 00:00 68 12/10/16 23:00 89 12/10/16 19:00 98.5 94 131/83 96 12/10/16 19:00 85 12/10/16 19:00 98.5 94 131/83 96 12/10/16 16:47 100 Room Air 2 12/10/16 16:45 100 Nasal Cannula 2 12/10/16 16:41 98.6 64 16 146/95 12/10/16 16:26 98.6 70 23 144/100 99 I/O 12/10/16 12/10/16 12/10/16 12/11/16 12/11/16 12/11/16 07:00 15:00 23:00 07:00 15:00 23:00 Intake Total 360 ml Output Total 1000 ml Balance -640 ml Intake Oral 360 ml Output Urine Total 1000 ml Physical Exam GENERAL: Well-nourished, well-developed patient. SKIN: Warm and dry. HEAD: Normocephalic. EYES: No scleral icterus. No injection or drainage. NECK: Supple, trachea midline. No JVD or lymphadenopathy. CARDIOVASCULAR: Regular rate and rhythm without murmurs, gallops, or rubs. RESPIRATORY: Breath sounds equal bilaterally. No accessory muscle use. GASTROINTESTINAL: Abdomen soft, non-tender, nondistended. EXTREMITIES: No cyanosis, or edema. NEUROLOGICAL: Awake, alert, and oriented x 3. Non-focal. Laboratory Laboratory Tests Test 12/10/16 12/11/16 16:47 04:29 White Blood Count 14.9 TH/MM3 15.5 TH/MM3 Red Blood Count 5.67 MIL/MM3 4.92 MIL/MM3 Hemoglobin 16.8 GM/DL 14.9 GM/DL Bedside Hemoglobin 16.7 G/DL Hematocrit 50.2 % 43.3 % Bedside Hematocrit 49.0 % Mean Corpuscular Volume 88.6 FL 88.0 FL Mean Corpuscular Hemoglobin 29.6 PG 30.3 PG Mean Corpuscular Hemoglobin 33.5 % 34.5 % Concent Red Cell Distribution Width 12.6 % 12.4 % Platelet Count 288 TH/MM3 224 TH/MM3 Mean Platelet Volume 9.9 FL 10.2 FL Neutrophils (%) (Auto) 46.3 % 66.5 % Lymphocytes (%) (Auto) 42.8 % 23.1 % Monocytes (%) (Auto) 8.5 % 8.4 % Eosinophils (%) (Auto) 2.2 % 1.2 % Basophils (%) (Auto) 0.2 % 0.8 % Neutrophils # (Auto) 6.9 TH/MM3 10.3 TH/MM3 Lymphocytes # (Auto) 6.4 TH/MM3 3.6 TH/MM3 Monocytes # (Auto) 1.3 TH/MM3 1.3 TH/MM3 Eosinophils # (Auto) 0.3 TH/MM3 0.2 TH/MM3 Basophils # (Auto) 0.0 TH/MM3 0.1 TH/MM3 CBC Comment AUTO DIFF DIFF FINAL Differential Total Cells 100 Counted Neutrophils % (Manual) 48 % Band Neutrophils % 2 % Lymphocytes % 42 % Monocytes % 2 % Eosinophils % 3 % Basophils % 3 % Neutrophils # (Manual) 7.5 TH/MM3 Differential Comment FINAL DIFF MANUAL Platelet Estimate NORMAL Platelet Morphology Comment NORMAL Prothrombin Time 10.8 SEC Prothromb Time International 1.0 RATIO Ratio Activated Partial 24.5 SEC Thromboplast Time Bedside Sodium 142 MMOL/L Bedside Potassium 3.8 MMOL/L Bedside Chloride 106 MMOL/L Bedside Blood Urea Nitrogen 14 MG/DL Bedside Creatinine 0.9 MG/DL Bedside Glucose 107 MG/DL Calcium Level 9.4 MG/DL 8.5 MG/DL Magnesium Level 2.3 MG/DL Total Creatine Kinase 110 U/L Creatine Kinase MB 2.6 NG/ML Troponin I LESS THAN 0.02 NG/ML B-Type Natriuretic Peptide LESS THAN 2 PG/ML Sodium Level 141 MEQ/L Potassium Level 4.0 MEQ/L Chloride Level 106 MEQ/L Carbon Dioxide Level 25.3 MEQ/L Anion Gap 10 MEQ/L Blood Urea Nitrogen 14 MG/DL Creatinine 0.86 MG/DL Estimat Glomerular Filtration 98 ML/MIN Rate Random Glucose 96 MG/DL Triglycerides Level 224 MG/DL Cholesterol Level 174 MG/DL LDL Cholesterol 100 MG/DL HDL Cholesterol 29.3 MG/DL Cholesterol/HDL Ratio 5.93 RATIO Assessment and Plan Problem List: (1) Acute ST elevation myocardial infarction Assessment and Plan: s/p PCI/MONET to LAD No CV complaints No events on telemetry Ambulating without difficulty Recommendations: 1. 2 Decho 2. DAPT (ASA and Brilinta) 3. Increase Lipitor to 80mg PO daily 4. Increase Lopressor to 25mg PO BID 5. Encourage ambulation and incentive spirometry 6. Smoking cessation 7. Cont telemetry (2) Dyslipidemia (3) Tobacco abuse Problem Qualifiers (1) Acute ST elevation myocardial infarction: Qualified Code: I21.02 - Acute ST elevation myocardial infarction (STEMI) involving left anterior descending (LAD) coronary artery Mu Pagan MD December 11, 2016 09:25
--- NOTE | 2016-12-11 15:27 | EC ---
Study Study Date:12/11/2016 STUDY CONCLUSIONS SUMMARY - Left ventricle: The cavity size was normal. Wall thickness was increased in a pattern of mild LVH. Systolic function was normal. The estimated ejection fraction was in the range of 60% to 65%. Wall motion was normal; there were no regional wall motion abnormalities. - Aortic valve: Valve area: 3.9cm^2 (Vmax). - Mitral valve: Mildly calcified annulus. If LV function is below 40, please consider prescribing an ACEI or ARB or document rationale for non-use. PROCEDURE DATA STUDY STATUS: Elective. Procedure: Transthoracic echocardiography. Image quality was good. Scanning was performed from the parasternal, apical, and subcostal acoustic windows. Study completion: The patient tolerated the procedure well. Transthoracic echocardiography. M-mode, complete 2D, complete spectral Doppler, and color Doppler. Height: Height: 68in. Weight: Weight: 199.6lb. Body mass index: BMI: 30.4kg/m^2. Body surface area: BSA: 2.04m^2. Patient status: Inpatient. CARDIAC ANATOMY LEFT VENTRICLE: The cavity size was normal. Wall thickness was increased in a pattern of mild LVH. Systolic function was normal. The estimated ejection fraction was in the range of 60% to 65%. Wall motion was normal; there were no regional wall motion abnormalities. AORTIC VALVE: Trileaflet; normal thickness leaflets. Doppler: Transvalvular velocity was within the normal range. There was no stenosis. No regurgitation. Valve area: 3.9cm^2 (Vmax). Indexed valve area: 1.91cm^2/m^2 (Vmax). AORTA: Aortic root: The aortic root was normal in size. MITRAL VALVE: Mildly calcified annulus. Doppler: Transvalvular velocity was within the normal range. There was no evidence for stenosis. No regurgitation. Valve area by pressure half-time: 2.65cm^2. Indexed valve area by pressure half-time: 1.3cm^2/m^2. LEFT ATRIUM: The atrium was normal in size. RIGHT VENTRICLE: The cavity size was normal. Wall thickness was normal. PULMONIC VALVE: Doppler: Transvalvular velocity was within the normal range. There was no evidence for stenosis. No regurgitation. TRICUSPID VALVE: Structurally normal valve. Doppler: Transvalvular velocity was within the normal range. No regurgitation. PULMONARY ARTERY: The main pulmonary artery was normal-sized. Systolic pressure was within the normal range. RIGHT ATRIUM: The atrium was normal in size. PERICARDIUM: There was no pericardial effusion. SYSTEMIC VEINS: Inferior vena cava: The vessel was normal in size. Patient weight: 199.6lb _Ejection fraction:_ 65-75% _Fractional shortening:_ 32% up to 5Kg 5-11.5Kg 11.6-22.9Kg 23-45Kg 45-57Kg Aortic Root 7-13 <17 13-22 17-27 17-27 LA diam 6-13 <23 24-38 33-47 37-40 RVID 10-17 7-15 7-15 7-18 8-17 LVIDd 12-22 <32 24-38 33-47 37-40 LVPW 2-4 3-6 5-7 6-8 7-8 IVS 2-4 3-6 5-7 6-8 7-8 BASIC MEASUREMENTS ADULT NORMAL Left ventricle LV internal dimension, ED, chordal 47.7 mm 43-52 level, PLAX LV internal dimension, ES, chordal 29.1 mm 23-38 level, PLAX Fractional shortening, chordal level, 39 % >29 PLAX LV posterior wall thickness, ED 11.7 mm IVS/LVPW ratio, ED 0.99 <1.3 Volume, ED, MOD, 1-plane 119 ml Volume, ES, MOD, 1-plane 40 ml Ejection fraction, MOD, 1-plane 66 % Stroke volume, MOD, 1-plane 79 ml Volume index, ED, MOD, 1-plane 58 ml/m^2 Volume index, ES, MOD, 1-plane 20 ml/m^2 Stroke index, MOD, 1-plane 38.7 ml/m^2 Ventricular septum Septal thickness, ED 11.6 mm Aortic valve Leaflet separation *28 mm 15-26 Left atrium Anterior-posterior dimension 30 mm Anterior-posterior dimension index 1.47 cm/m^2 <2.2 Right ventricle RV internal dimension, ED, PLAX 27.6 mm 19-38 BASIC MEASUREMENTS ADULT NORMAL Aortic valve Leaflet separation *28 mm 15-26 Aorta Root diameter, ED 31 mm 20-37 DOPPLER MEASUREMENTS ADULT NORMAL Aortic valve Peak velocity, S 117 cm/s Valve area, Vmax 3.9 cm^2 Valve area index, Vmax 1.91 cm^2/m^2 Mitral valve Peak E-wave velocity 61.7 cm/s Peak A-wave velocity 57.8 cm/s Pressure half-time 83 ms Peak E/A ratio 1.1 Valve area, pressure half-time 2.65 cm^2 Valve area index, pressure half-time 1.3 cm^2/m^2 Pulmonic valve Peak velocity, S 88 cm/s LEGEND: Mean values are shown as u=mean value. Asterisk (*) stephen values outside specified normal range. Prepared and signed by Milagro Justice [id number]
--- NOTE | 2016-12-11 16:41 | EKG ---
Date Performed: 12/10/2016 Time Performed: 16:36:32 PTAGE: 41 years EKG: Sinus rhythm WITH SINUS ARRHYTHMIA INCOMPLETE RIGHT BUNDLE BRANCH BLOCK ST ELEVATION, PROBABLY EARLY REPOLARIZATI ON TALL T-WAVES, SUGGESTS HYPERKALEMIA TYPE 3 BRUGADA PATTERN (NON-DIAGNOSTIC) Clinical correlation i s suggested ABNORMAL ECG NO PREVIOUS TRACING DOCTOR: Milagro Justice Interpretating Date/Time 12/11/2016 16:39:33
--- NOTE | 2016-12-11 16:41 | EKG ---
Date Performed: 12/11/2016 Time Performed: 06:03:46 PTAGE: 41 years EKG: Sinus rhythm Possible inferior infarct - age undetermined Compared to previous tracing, the ST segments appear to be back at baseline Abnormal ECG NO PREVIOUS TRACING DOCTOR: Milagro Justice Interpretating Date/Time 12/11/2016 16:39:55
[2016-12-11] MEDS ORDERED: IOHEXOL 350 MG/ML 100 ML BTL (for Cath Lab) OTHER ONE (16:53)
[2016-12-11] MEDS ORDERED: ATORVASTATIN 80 MG TAB PO SCH (21:00)
[2016-12-12] VITALS (12 sets, daily range): BP systolic 99–110; BP diastolic 66–74; PULSE 64–78; RESP 14–20; TEMP 98.2–98.3; O2SAT 96–97
--- NOTE | 2016-12-12 08:31 | HHI.PR ---
Subjective Remarks Follow-up STEMI. Patient has no complaints this morning. Chest pain has resolved. Denies dyspnea, nausea, vomiting. Objective Vitals Vital Signs Date Time Temp Pulse Resp B/P Pulse Ox O2 Delivery O2 Flow Rate FiO2 12/12/16 06:00 70 12/12/16 05:00 70 12/12/16 04:02 98.2 66 14 110/74 96 12/12/16 04:00 72 12/12/16 03:00 68 12/12/16 02:00 66 12/12/16 01:00 98.3 71 14 99/66 97 12/12/16 01:00 70 12/12/16 00:00 67 12/11/16 23:03 97 Room Air 12/11/16 23:00 72 12/11/16 22:00 72 12/11/16 21:00 84 12/11/16 20:00 88 12/11/16 20:00 97.9 75 16 120/74 97 12/11/16 20:00 97 Room Air 12/11/16 19:00 74 12/11/16 18:00 88 12/11/16 17:00 82 12/11/16 16:00 98.3 87 20 113/70 96 12/11/16 16:00 96 Room Air 12/11/16 16:00 84 12/11/16 15:00 76 12/11/16 14:00 70 12/11/16 13:00 76 12/11/16 12:00 96 Room Air 12/11/16 12:00 72 12/11/16 12:00 97.8 73 20 114/71 96 12/11/16 11:00 80 12/11/16 10:00 88 12/11/16 09:00 94 I/O 12/11/16 12/11/16 12/11/16 12/12/16 12/12/16 12/12/16 07:00 15:00 23:00 07:00 15:00 23:00 Intake Total 360 ml 960 ml 360 ml Output Total 1000 ml Balance -640 ml 960 ml 360 ml Intake Oral 360 ml 960 ml 360 ml IV Total 0 ml Output Urine Total 1000 ml # Voids 4 3 # Bowel Movements 1 0 Result Diagram: 12/11/16 0429 12/11/16 0429 Objective Remarks General: No acute distress. Heart: Regular rate and rhythm. No murmur. Lungs: Clear to auscultation bilaterally. No wheezes, rales, or rhonchi. Breathing is nonlabored. Abdomen: Soft, nontender, nondistended. Extremities: No lower extremity edema. Psych: Alert and oriented. Procedures 12/10/16 cardiac catheterization with stent placement Urinary Catheter: No Vascular Central Line Catheter: No A/P Problem List: (1) Acute ST elevation myocardial infarction ICD Code: I21.3 Status: Acute (2) Dyslipidemia ICD Code: E78.5 Status: Acute (3) Leukocytosis ICD Code: D72.829 Status: Acute (4) Tobacco abuse ICD Code: Z72.0 Status: Acute Assessment and Plan 1. STEMI: Management per cardiology. Status post cardiac catheterization with placement of stent to the LAD. Continue statin, TRINH inhibitor, beta ludy. Dual antiplatelet therapy with aspirin and Brilinta. 2-D echocardiogram was unremarkable. 2. Dyslipidemia: LDL is above goal. HDL is low. Continue statin. 3. Tobacco abuse: Counseled to quit smoking. 4. DVT prophylaxis: Aspirin, Brilinta. Discharge Planning Plan for discharge home today if okay with cardiology. Problem Qualifiers (1) Acute ST elevation myocardial infarction: Qualified Code: I21.02 - Acute ST elevation myocardial infarction (STEMI) involving left anterior descending (LAD) coronary artery Omid Rain MD December 12, 2016 08:31
[2016-12-12] MEDS ORDERED: ASPI81TA11 PO (08:33)
[2016-12-12] MEDS ORDERED: BRIL90TA PO (08:33)
[2016-12-12] MEDS ORDERED: METO25TA3 PO (08:33)
[2016-12-12] MEDS ORDERED: ATOR1TAB18 PO (08:33)
[2016-12-12] MEDS ORDERED: LISI-519 PO (08:33)
--- NOTE | 2016-12-12 08:34 | HHI.DCPOC ---
Discharge Care Plan Diagnosis: (1) Leukocytosis (2) Tobacco abuse (3) Dyslipidemia (4) Acute ST elevation myocardial infarction Goals to Promote Your Health * To prevent worsening of your condition and complications * To maintain your health at the optimal level Directions to Meet Your Goals Take your medications as prescribed Follow your dietary instruction Follow activity as directed Keep your appointments as scheduled Take your immunizations and boosters as scheduled If your symptoms worsen call your PCP, if no PCP go to Urgent Care Center or Emergency Room Smoking is Dangerous to Your Health. Avoid second hand smoke Call the 24-hour hour crisis hotline for domestic abuse at Omid Rain MD December 12, 2016 08:34
[2016-12-12] MEDS: METOPROLOL TARTRATE 25 MG TAB PO SCH (08:43)
[2016-12-12] MEDS: ASPIRIN 81 MG CHEW TAB PO SCH (08:44)
[2016-12-12] MEDS: LISINOPRIL 5 MG TAB PO SCH (08:44)
[2016-12-12] MEDS: SODIUM CHLORIDE 0.9% FLUSH 10 ML FLUSH IVF PRN (08:45)
[2016-12-12] MEDS: TICAGRELOR 90 MG TAB PO SCH (08:45)
--- NOTE | 2016-12-12 10:14 | PD.CARD.PN ---
Subjective Subjective Remarks no complaints no overnight events ambulating without difficulty Objective Medications Current Medications Medications (Trade) Dose Ordered Sig/Rafaela Route Start Time Stop Time Status Last Admin Sodium Chloride 2 ml 2 ml UNSCH PRN IVF 12/10/16 16:45 12/12/16 08:45 (Nitroglycerin-Dextrose Inj) 250 ml @ 0 mls/hr TITRATE IV 12/10/16 16:45 (Tylenol) 325 mg Q4H PRN PO 12/10/16 18:15 12/11/16 06:14 (Aspirin Chew) 81 mg DAILY PO 12/11/16 09:00 12/12/16 08:44 (Brilinta) 90 mg BID PO 12/11/16 09:00 12/12/16 08:45 (Atropine Inj) 0.5 mg UNSCH PRN IV 12/10/16 18:15 (Prinivil) 5 mg DAILY PO 12/11/16 09:00 12/12/16 08:44 (Pill Splitter) 1 ea UNSCH PRN OTHER 12/10/16 21:00 (Lipitor) 80 mg HS PO 12/11/16 21:00 12/11/16 20:39 (Lopressor) 25 mg BID PO 12/11/16 21:00 12/12/16 08:43 Vital Signs / I&O Vital Signs Date Time Temp Pulse Resp B/P Pulse Ox O2 Delivery O2 Flow Rate FiO2 12/12/16 06:00 70 12/12/16 05:00 70 12/12/16 04:02 98.2 66 14 110/74 96 12/12/16 04:00 72 12/12/16 03:00 68 12/12/16 02:00 66 12/12/16 01:00 98.3 71 14 99/66 97 12/12/16 01:00 70 12/12/16 00:00 67 12/11/16 23:03 97 Room Air 12/11/16 23:00 72 12/11/16 22:00 72 12/11/16 21:00 84 12/11/16 20:00 88 12/11/16 20:00 97.9 75 16 120/74 97 12/11/16 20:00 97 Room Air 12/11/16 19:00 74 12/11/16 18:00 88 12/11/16 17:00 82 12/11/16 16:00 98.3 87 20 113/70 96 12/11/16 16:00 96 Room Air 12/11/16 16:00 84 12/11/16 15:00 76 12/11/16 14:00 70 12/11/16 13:00 76 12/11/16 12:00 96 Room Air 12/11/16 12:00 72 12/11/16 12:00 97.8 73 20 114/71 96 12/11/16 11:00 80 I/O 12/11/16 12/11/16 12/11/16 12/12/16 12/12/16 12/12/16 07:00 15:00 23:00 07:00 15:00 23:00 Intake Total 360 ml 960 ml 360 ml Output Total 1000 ml Balance -640 ml 960 ml 360 ml Intake Oral 360 ml 960 ml 360 ml IV Total 0 ml Output Urine Total 1000 ml # Voids 4 3 # Bowel Movements 1 0 Physical Exam GENERAL: Well-nourished, well-developed patient. SKIN: Warm and dry. HEAD: Normocephalic. EYES: No scleral icterus. No injection or drainage. NECK: Supple, trachea midline. No JVD or lymphadenopathy. CARDIOVASCULAR: Regular rate and rhythm without murmurs, gallops, or rubs. RESPIRATORY: Breath sounds equal bilaterally. No accessory muscle use. GASTROINTESTINAL: Abdomen soft, non-tender, nondistended. EXTREMITIES: No cyanosis, or edema. NEUROLOGICAL: Awake, alert, and oriented x 3. Non-focal. Imaging 2D Echo: Left ventricle the cavity size was normal. Wall thickness was increased in a pattern of mild LVH. Systolic function was normal. The estimated ejection fraction was in the range of 60% to 65%. Wall motion was normal; there were no regional wall motion abnormalities. Assessment and Plan Problem List: (1) Acute ST elevation myocardial infarction Assessment and Plan: No CV complaints. 2Decho good LV function. Recs: 1. Cont DAPT 2. Cont BB, ACEi and statins 3. Smoking cessation 4. Stable from CV standpoint to be d/c home today 5. Follow up with me in the office in 1week. (2) Dyslipidemia (3) Tobacco abuse Problem Qualifiers (1) Acute ST elevation myocardial infarction: Qualified Code: I21.02 - Acute ST elevation myocardial infarction (STEMI) involving left anterior descending (LAD) coronary artery Mu Pagan MD December 12, 2016 10:14
== END 2016-12-12 11:40 | disposition home or self-care (01) | DRG 247 ==
LOC: NEPC 16:24 → NEDA 16:54 → HCIN 18:17 → UNDOADMIN 18:17 → UNDODISIN 12-12 11:40
PROVIDERS: ADMIT Radiology Vascular & Interventional Radiology; ATTEND Radiology Vascular & Interventional Radiology
PROC: 027034Z Dilation of Coronary Artery, One Artery with Drug-eluting Intraluminal Device, Percutaneous Approach (ICD-10-PCS; principal; 2016-12-10)
PROC: 4A023N7 Measurement of Cardiac Sampling and Pressure, Left Heart, Percutaneous Approach (ICD-10-PCS; 2016-12-10)
PROC: B2111ZZ Fluoroscopy of Multiple Coronary Arteries using Low Osmolar Contrast (ICD-10-PCS; 2016-12-10)
PROC: B41F1ZZ Fluoroscopy of Right Lower Extremity Arteries using Low Osmolar Contrast (ICD-10-PCS; 2016-12-10)
DX: I21.02 ST elevation (STEMI) myocardial infarction involving left anterior descending coronary artery (principal); E78.5 Hyperlipidemia, unspecified; I25.10 Atherosclerotic heart disease of native coronary artery without angina pectoris; D72.829 Elevated white blood cell count, unspecified; F17.210 Nicotine dependence, cigarettes, uncomplicated; Z98.1 Arthrodesis status; Z82.49 Family history of ischemic heart disease and other diseases of the circulatory system
CPT/HCPCS: 80048; 80061; 82310; 82435; 82550; 82552; 82565; 82947; 83735; 83880; 84132; 84295; 84484; 84520; 85007; 85025; 85027; 85610; 85730; 92941; 93005; 93306; 93454; C1725; C1760; C1769; C1874; C1887; C1893; G0269; J0583; J1644; J2250; J3010; J7030; Q9967

== ENCOUNTER 2018-02-17 07:07 | Observation (INO) ==
--- NOTE | 2018-02-17 14:58 | P.HP ---
History of Present Illness Primary Care Physician: UNKNOWN Chief Complaint: Chest pain History of Present Illness: This is a 42-year-old male patient with a known medical history of CAD history of STEMI and hypertension who presented to the ED with complaints of chest pain. 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 He states that the Dilaudid has helped alleviate his pain somewhat but it is still present and "dull" in nature. He denies any associated nausea, vomiting, shortness of breath does admit to associated sweating. He states that when he awoke this morning the pain continued, worsened with activity and movement. He states that he did recently pull his back and his work the other day. Patient underwent a cardiac catheterization in November 2016, at that time he had a STEMI, total occlusion of the LAD with stent placement at that time it was found that patient had 70% occlusion of the RCA which was not stented at that time. Patient follows with Dr. Amezcua, was last seen a month ago and at that time his one-year checkup was done including echocardiogram with no changes and no significant findings. Dr. Amezcua did stop his Brilinta at that time. Patient has been feeling at his baseline before episode of pulling his back, denies any recent illness including fever, chills, cough, shortness of breath, dumping, nausea vomiting, diarrhea or dysuria. Review of Systems All other systems reviewed negative except as stated in HPI PMFSH - History History Provided By: Patient - Medical History Medical History: Medical History (Last Reviewed 02/17/18 @ 14:43 by Heri Miranda RN) Hypertension Myocardial infarction - Surgical History Surgical History: Surgical History (Last Reviewed 02/17/18 @ 14:43 by Heri Miranda RN) History of coronary artery stent placement - Family History Family History: Family History (Last Updated 02/17/18 @ 16:31 by Lizabeth Dexter) Other No significant family history - Tobacco History Second Hand Smoke Exposure: Yes Tobacco Use In Past 30 Days: Yes Smoking Status: Current every day smoker Tobacco Type: Cigarettes - Alcohol History How Often Do You Have a Drink Containing Alcohol: 2 to 3 times a week - Substance Use History Substance History: No History of Abuse Medications and Allergies Active Medications: Active Medications Aspirin (Aspirin Chew) 81 mg PO DAILY BRIE Atorvastatin Calcium (Lipitor) 80 mg PO DAILY BRIE Lisinopril (Prinivil) 5 mg PO DAILY BRIE Nitroglycerin (Nitrostat Sl) 0.4 mg SL Q5M PRN PRN Reason: CHEST PAIN Ondansetron HCl (Zofran Inj) 4 mg IV.PUSH Q6H PRN PRN Reason: NAUSEA Sodium Chloride (Ns Flush) 2 ml IV.FLUSH BID BRIE Sodium Chloride (Ns Flush) 2 ml IV.FLUSH PRN PRN PRN Reason: FLUSH AFTER USING IV ACCESS Allergies Allergy/AdvReac Type Severity Reaction Status Date / Time amoxicillin Allergy Unknown Anaphylaxis Verified 02/17/18 07:27 Home Medications Medication Instructions Recorded Confirmed Type aspirin 81 mg PO DAILY 02/17/18 02/17/18 History atorvastatin 80 mg PO DAILY 02/17/18 02/17/18 History lisinopril [Prinivil] 5 mg PO DAILY 02/17/18 02/17/18 History metoprolol tartrate [Lopressor] 25 mg PO BID 02/17/18 02/17/18 History Exam Vital signs: Intake & Output 02/16/18 02/17/18 02/17/18 18:59 06:59 18:59 Weight 195 kg Other: Weight On Admission 195 kg Narrative: GENERAL: Well-developed, well-nourished patient in [facility]. SKIN: Warm and dry. No rash. HEAD: Normocephalic. Atraumatic. EYES: Pupils equal and round. No scleral icterus. No injection or drainage. ENT: No nasal bleeding or discharge. Mucous membranes pink and moist. NECK: Supple. Trachea midline. CARDIOVASCULAR: Regular rate and rhythm. S1, S2 noted. No murmur appreciated. No chest pain to palpation. RESPIRATORY: No accessory muscle use. Clear to auscultation. Breath sounds equal bilaterally. GASTROINTESTINAL: Abdomen soft, non-tender, nondistended. Normoactive bowel sounds x4. MUSCULOSKELETAL: No obvious deformities. Extremities without clubbing, cyanosis , or edema. NEUROLOGICAL: Awake and alert. No obvious cranial nerve deficits. Motor grossly within normal limits. 5/5 muscle strength in bilateral upper and lower extremities. Normal speech. PSYCHIATRIC: Appropriate mood and affect; insight and judgment normal. - Constitutional no acute distress Caprini VTE Risk Assessment Caprini VTE Risk Assessment: No/Low Risk (score <= 1) Caprini Risk Assessment Model: Point Value = 1 Point Value = 2 Point Value = 3 Point Value = 5 Age 41-60 Minor surgery BMI > 25 kg/m2 Swollen legs Varicose veins or History of unexplained or recurrent spontaneous Oral contraceptives or hormone replacement Sepsis (< 1 month) Serious lung disease, including pneumonia (< 1 month) Abnormal pulmonary function Acute myocardial infarction Congestive heart failure (< 1 month) History of inflammatory bowel disease Medical patient at bed rest Age 61-74 Arthroscopic surgery Major open surgery (> 45 min) Laparoscopic surgery (> 45 min) Malignancy Confined to bed (> 72 hours) Immobilizing plaster cast Central venous access Age >= 75 History of VTE Family history of VTE Factor V Leiden Prothrombin [id number] Lupus anticoagulant Anticardiolipin antibodies Elevated serum homocysteine Heparin-induced thrombocytopenia Other congenital or acquired thrombophilia Stroke (< 1 month) Elective arthroplasty Hip, pelvis, or leg fracture Acute spinal cord injury (< 1 month) Prophylaxis Regimen: Total Risk Factor Score Risk Level Prophylaxis Regimen 0-1 Low Early ambulation 2 Moderate Order ONE of the following: *Sequential Compression Device (SCD) *Heparin 5000 units SQ BID 3-4 Higher Order ONE of the following medications: *Heparin 5000 units SQ TID *Enoxaparin/Lovenox 40 mg SQ daily (WT < 150 kg, CrCl > 30 mL/min) *Enoxaparin/Lovenox 30 mg SQ daily (WT < 150 kg, CrCl > 10-29 mL/min) *Enoxaparin/Lovenox 30 mg SQ BID (WT < 150 kg, CrCl > 30 mL/min) AND/OR *Sequential Compression Device (SCD) 5 or more Highest Order ONE of the following medications: *Heparin 5000 units SQ TID (Preferred with Epidurals) *Enoxaparin/Lovenox 40 mg SQ daily (WT < 150 kg, CrCl > 30 mL/min) *Enoxaparin/Lovenox 30 mg SQ daily (WT < 150 kg, CrCl > 10-29 mL/min) *Enoxaparin/Lovenox 30 mg SQ BID (WT < 150 kg, CrCl > 30 mL/min) AND *Sequential Compression Device (SCD) Assessment and Plan - Plan This is a 42-year-old male patient with a known medical history of CAD history of [place], hypertension who presented to the ED with complaints of chest pain. Chest pain rule out ACS vs musculoskeletal etiology vs other etiology CAD with history of STEMI and stent placement November 2016 -Patient has been admitted to the chest pain center for observation. -Serial troponins and serial EKGs have been ordered for ruling out ACS purposes. Initial two troponins flat, await third enzyme, -EKG reviewed showing no acute changes, heart rate controlled. -Chest pain has resolved some with Dilaudid. Was also given aspirin and nitro in ED. Will continue. -Chest x-ray reviewed showing no acute cardiopulmonary disease. -Continue cardiac telemetry, monitor for any arrhythmias. -Patient underwent a cardiac cath back in November 2016, at that time he had a STEMI , 100% occlusion in LAD requiring stent placement, as well as 70% occlusion in RCA with no intervention at that time. -Follows with Dr. Amezcua, last seen in November 2017, stopped Brilinta at that time with no other changes to his medications. -Attempted to place call to Dr. Amezcua to determine if he wants to go ahead with cardiac cath vs myocardial perfusion scan. Awaiting call back. 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 -His symptoms on presentation appear to be atypical, stating he recently pulled a muscle in his back at work. Will attempt one dose of Toradol and assess response. -Supportive care. Continue to monitor. -Allow to eat dinner, NPO after midnight for possible myocardial perfusion scan. DVT Prophylaxis: SCDs. Ambulation.
[2018-02-17 15:45] LABS: Creatine Kinase 80 U/L (39-308)
[2018-02-17] MEDS ORDERED: Ketorolac Inj 30 MG/ML (IVP) Vial IV.PUSH ONE (16:45)
[2018-02-18] MEDS ORDERED: Regadenoson Inj 0.4 MG/5 ML Syringe IV.PUSH ONE (08:41)
[2018-02-18] MEDS ORDERED: Lisinopril 5 MG Tablet PO SCH (09:00)
--- NOTE | 2018-02-18 11:45 | P.PN ---
Subjective Interval history: Patient follow up for chest pain. Patient seen and examined, underwent a myocardial perfusion scan, report reviewed with patient and , EF 55% and no ischemia noted. Patient's pain has resolved, likely musculoskeletal in nature. Encouraged NSAIDs, heat/ice therapy. Patient has follow up with Dr. Amezcua and PCP. VSS. Afebrile. It should be noted that patient and are upset regarding delay in reading of report. Patient had the test done around 9 am, the report was read at 10:18, but was unable to view on the report screen. RN attempted to inquire about this throughout the morning. I followed up with this and report was eventually found under image and printed for patient and . There was a delay regarding the reading of myocardial perfusion scan and when the report was posted for our viewing. I attempted to the best of my ability to reassure them and may be secondary to the new system upgrade. Charge nurse Moody in to speak with patient as well. Physical Exam Vital signs: Vital Signs 02/17/18 20:00 02/18/18 00:00 02/18/18 04:00 Temperature 97 F L 97.7 F 97.4 F L Pulse Rate 45 L 74 66 Respiratory Rate 20 20 20 Blood Pressure 125/81 119/70 126/58 L Pulse Oximetry 96 95 95 02/18/18 07:41 02/18/18 11:08 Temperature 97.2 F L 96.8 F L Pulse Rate 68 67 Respiratory Rate 20 20 Blood Pressure 119/66 118/69 Pulse Oximetry 96 20 L Intake & Output 02/17/18 02/18/18 02/18/18 18:59 06:59 18:59 Intake Total 960 / 960 Balance 960 / 960 Weight 195 kg 88.9 kg Intake: Oral 960 / 960 Other: # Voids 3 # Bowel Movements 1 Weight On Admission 195 kg Narrative: GENERAL: Well-developed, well-nourished patient in [place]. SKIN: Warm and dry. No rash. HEAD: Normocephalic. Atraumatic. EYES: Pupils equal and round. No scleral icterus. No injection or drainage. ENT: No nasal bleeding or discharge. Mucous membranes pink and moist. NECK: Supple. Trachea midline. CARDIOVASCULAR: Regular rate and rhythm. S1, S2 noted. No murmur appreciated. No chest pain to palpation. RESPIRATORY: No accessory muscle use. Clear to auscultation. Breath sounds equal bilaterally. GASTROINTESTINAL: Abdomen soft, non-tender, nondistended. Normoactive bowel sounds x4. MUSCULOSKELETAL: No obvious deformities. Extremities without clubbing, cyanosis , or edema. NEUROLOGICAL: Awake and alert. No obvious cranial nerve deficits. Motor grossly within normal limits. 5/5 muscle strength in bilateral upper and lower extremities. Normal speech. PSYCHIATRIC: Appropriate mood and affect; insight and judgment normal. Results - Labs Laboratory Results - last 24 hr 02/17/18 15:05 Total Creatine Kinase 80 Troponin I Less than 0.02 L Assessment and Plan - Plan This is a 42-year-old male patient with a known medical history of CAD history of [place], hypertension who presented to the ED with complaints of chest pain. Chest pain rule out ACS vs musculoskeletal etiology vs other etiology CAD with history of STEMI and stent placement November 2016 -Patient has been admitted to the chest pain center for observation. -Serial troponins and serial EKGs have been ordered for ruling out ACS purposes. troponins flat. ACS ruled out. -EKG reviewed showing no acute changes, heart rate controlled. -Chest pain has resolved some with Dilaudid. Was also given aspirin and nitro in ED. Will continue. -Chest x-ray reviewed showing no acute cardiopulmonary disease. -Continue cardiac telemetry, monitor for any arrhythmias. No arrhythmias overnight. -Patient underwent a cardiac cath back in November 2016, at that time he had a STEMI , 100% occlusion in LAD requiring stent placement, as well as 70% occlusion in RCA with no intervention at that time. -Follows with Dr. Amezcua, last seen in November 2017, stopped Brilinta at that time with no other changes to his medications. -Spoke to Dr. Amezcua, requesting myocardial perfusion scan. -Underwent a cardiac stress test this am. Report unremarkable. -His symptoms on presentation appear to be atypical, stating he recently pulled a muscle in his back at work. Toradol was helpful. Will encourage NSAIDS, heat/ ice therapy and rest. DC HOME. Follow up PCP and cardiology as needed. Heart healthy diet. Activity as tolerated.
--- NOTE | 2018-02-18 13:43 | TR ---
Date Performed: 02/18/2018 Time Performed: 09:15:05 DOCTOR: Wilberto Crow DRUG LIST: CLINICAL HISTORY: REASON FOR TEST: Chest pain REASON FOR ENDING: OBSERVATION: CONCLUSION: COMMENTS: Lexiscan stress test was performed under standard four minute protocol. Radionuclide was injected one minute prior to ending the test. No electrocardiographic abormalities were present t o suggest ischemia. Nuclear imaging and interpretation are pending.
--- NOTE | 2018-02-18 21:20 | NM ---
EXAM DATE: 02/18/2018 10:03 AM EDT AGE/SEX: 42 years / Male INDICATIONS:Angina. Myocardial infarction Midsternal chest pain radiating to the back. CLINICAL DATA: This is the patient's initial encounter. Patient reports that signs and symptoms have been present for 1 day and indicates a pain score of 10/10. MEDICAL/SURGICAL HISTORY: Hypertension. Coronary artery stent. COMPARISON: [facility], CHEST 2V PA&LAT, 02/17/2018. . DOSE: 26.9 mCi Tc 99m Myoview at stress 8.8 mCi [id number] at rest 0.4 mg Lexiscan STRESS SYMPTOMS: Chest pressure, lightheadedness and dyspnea. EJECTION FRACTION: 55 % TECHNIQUE: The patient underwent pharmacologic stress with infusion of prescribed dose. Continuous ECG tracing was monitored during stress. Gated SPECT imaging was performed after stress and conventi onal SPECT imaging was performed at rest. The examination was performed on a SPECT/CT scanner, both attenuation and non-corrected datasets were reviewed. FINDINGS: Distribution: The maximum perfused segment at stress is in the anterolateral wall. Perfusion Study: The pattern of perfusion at stress demonstrates an area of reduction in perfusion to inferoapical wall. The examination is limited due to significant uptake in the patient's bowel p articularly limits the evaluation of RCA distribution. There is also soft tissue attenuation artifact . No significant ischemia is seen. Gated Study: There are intact wall motion and wall thickening without hypokinetic or dyskinetic segm ents. The ejection fraction is calculated at 55%. RISK CATEGORY: Low (<1% Annual Motality Rate) CONCLUSION: 1. No appreciable ischemia. Electronically signed by: Esau Aggarwal MD 02/18/2018 10:18 AM EDT
--- NOTE | 2018-02-19 11:45 | ECG ---
Date Performed: 02/17/2018 Time Performed: 15:03:02 PTAGE: 42 years EKG: SINUS BRADYCARDIA INCOMPLETE RIGHT BUNDLE BRANCH BLOCK BORDERLINE ECG PREVIOUS TRACING : 12/11/2016 06.03 Since previous tracing, no significant change noted DOCTOR: Wilberto Crow Interpretating Date/Time 02/19/2018 11:44:42
== END 2018-02-18 15:11 | disposition home or self-care (01) ==
LOC: NEDDLT 13:48 → PH3 13:48
PROVIDERS: ADMIT Hospitalist; ATTEND Hospitalist